=== PATIENT | female | born 1985 | race American Indian/Alaskan Native ===

== ENCOUNTER 2021-07-20 15:26 | Emergency (ER) | payer MEDICAID ==
[2021-07-20 17:21] VITALS: BP 157/103
--- NOTE | 2021-07-20 18:12 | Emergency Department Report ---
ED General Adult HPI - General Chief complaint: Rectal Pain Stated complaint: STD/PAIN X 3 DAYS Time Seen by Provider: 07/20/21 17:29 Source: patient Mode of arrival: Ambulatory Limitations: No Limitations - History of Present Illness Severity scale (0 -10): 7 - Related Data Previous Rx's Medication Instructions Recorded Last Taken Type Hydrocortisone [Anucort-HC SUPPOS] 25 mg RC BID #10 supp.rect 07/20/21 Unknown Rx Hydrocortisone [Anusol-Hc 2.5% TOP 25 mg RC TID PRN #30 cream..g. 07/20/21 Unknown Rx CREAM] Lidocaine [Lidocaine Cream] 15 gm TP Q4HR PRN #15 cream..g. 07/20/21 Unknown Rx Allergies Allergy/AdvReac Type Severity Reaction Status Date / Time metronidazole [From Flagyl] Allergy Swelling Verified 07/20/21 17:21 ED Review of Systems ROS: Stated complaint: STD/PAIN X 3 DAYS Other details as noted in HPI Comment: All other systems reviewed and negative ED Past Medical Hx - Medications Home Medications: Home Medications Medication Instructions Recorded Confirmed Last Taken Type Hydrocortisone [Anucort-HC SUPPOS] 25 mg RC BID #10 supp.rect 07/20/21 Unknown Rx Hydrocortisone [Anusol-Hc 2.5% TOP 25 mg RC TID PRN #30 cream..g. 07/20/21 Unknown Rx CREAM] Lidocaine [Lidocaine Cream] 15 gm TP Q4HR PRN #15 cream..g. 07/20/21 Unknown Rx ED Physical Exam - General Limitations: No Limitations General appearance: alert, in no apparent distress - Head Head exam: Present: atraumatic, normocephalic - Eye Eye exam: Present: normal appearance, PERRL Pupils: Present: normal accommodation - ENT ENT exam: Present: normal exam, mucous membranes moist, TM's normal bilaterally - Neck Neck exam: Present: normal inspection, full ROM - Respiratory Respiratory exam: Present: normal lung sounds bilaterally. Absent: respiratory distress, wheezes, rales, rhonchi, accessory muscle use, decreased breath sounds - Cardiovascular Cardiovascular Exam: Present: regular rate, normal rhythm. Absent: systolic murmur, diastolic murmur, rubs, gallop - GI/Abdominal GI/Abdominal exam: Present: soft, normal bowel sounds - Rectal Rectal exam: Present: hemorrhoids, other (No broadcast systems engineer present) - Extremities Exam Extremities exam: Present: normal inspection - Back Exam Back exam: Present: normal inspection. Absent: CVA tenderness (R), CVA tenderness (L) - Neurological Exam Neurological exam: Present: alert, oriented X3, CN II-XII intact - Psychiatric Psychiatric exam: Present: normal affect, normal mood - Skin Skin exam: Present: warm, dry, intact, normal color. Absent: rash ED Course Vital Signs 07/20/21 17:17 Temperature 98.2 F Pulse Rate 100 H Respiratory 16 Rate Blood Pressure 157/103 [Right] O2 Sat by Pulse 100 Oximetry ED Medical Decision Making - Medical Decision Making 35-year-old female evaluate emergency department today for rectal pain was found to have the symptoms were due to hemorrhoids. Advised patient on the appropriate treatment for the hemorrhoids with creams and suppositories and further definitive treatment to be administered by the director of plant operations. She been advised to stay hydrated and eat a high-fiber diet and taking stool stool softeners and also been briefed on return precautions. In regards to her suspicion for possible coming in contact with an STD but having minimal symptoms she been referred to the health department Critical care attestation.: If time is entered above; I have spent that time in minutes in the direct care of this critically ill patient, excluding procedure time. ED Disposition Clinical Impression: Hemorrhoids, Possible exposure to STD Disposition: 01 HOME / SELF CARE / HOMELESS Is pt being admited?: No Does the pt Need Aspirin: No Condition: Stable Instructions: Hemorrhoids, Dysuria, Safe Sex Additional Instructions: You have been evaluated department today for your rectal pain. Evaluation has revealed that your symptoms are due to hemorrhoids. You can apply hemorrhoid cream or suppository which ever is available and do sitz bath to soothe the area. Stay well-hydrated and eat a high-fiber diet and take stool softeners you should not strain on the toilet. Please follow-up with your primary care provider and also schedule problem with the the director of plant operations which we have listed in your paperwork today. Return to emergency department if you experience worsening bleeding, feeling lightheaded, shortness of breath, headache, feeling weak or having fever or any other concerning symptoms Prescriptions: Hydrocortisone [Anucort-HC SUPPOS] 25 mg RC BID #10 supp.rect Hydrocortisone [Anusol-Hc 2.5% TOP CREAM] 25 mg RC TID PRN #30 cream..g. PRN Reason: rectal pain Lidocaine [Lidocaine Cream] 15 gm TP Q4HR PRN #15 cream..g. PRN Reason: rectal pain Referrals: [facility] [Provider Group] - 3-5 Days [facility] [Provider Group] - 3-5 Days PRIMARY CARE,MD [Primary Care Provider] - 3-5 Days [facility] [Outside] - 3-5 Days
== END 2021-07-20 18:32 | disposition home or self-care (01) ==
LOC: ED 15:26
DX: K64.9 Unspecified hemorrhoids (principal); Z20.2 Contact with and (suspected) exposure to infections with a predominantly sexual mode of transmission; Z88.1 Allergy status to other antibiotic agents
CPT/HCPCS: 99282

== ENCOUNTER 2021-10-28 20:01 | Emergency (ER) | payer MEDICAID ==
[2021-10-28] MEDS ORDERED: oxyCODONE /ACETAMINOPHEN 5-325MG TAB PO ONE (22:31)
[2021-10-28] MEDS ORDERED: KETOROLAC 30 MG/1 ML INJ IM ONE (22:31)
[2021-10-28] MEDS ORDERED: predniSONE 20 MG TAB PO ONE (22:31)
[2021-10-28] MEDS ORDERED: ONDANSETRON 4 MG ODT TAB PO ONE (22:31)
[2021-10-28 23:47] LABS: Bacteria,Urine 1+ /HPF (Negative); Bilirubin,Urine NEG (Negative); Blood,Urine MOD (Negative); Color,Urine Yellow (Yellow); Hyaline Casts,Urine 2 /LPF; Mucus,Urine 2+ /HPF; Urobilinogen,Urine < 2.0 mg/dL (<2.0)
[2021-10-28 23:48] LABS: HCG Qualitative,Urine Negative (Negative)
--- NOTE | 2021-10-29 01:02 | XRay Report ---
CHEST 2 VIEWS INDICATION / CLINICAL INFORMATION: cough. COMPARISON: None available. FINDINGS: SUPPORT DEVICES: None. HEART / MEDIASTINUM: No significant abnormality. LUNGS / PLEURA: No significant pulmonary abnormality. No significant pleural effusion. No pneumothora x. ADDITIONAL FINDINGS: No significant additional findings. IMPRESSION: 1. No acute abnormality of the chest. Signer Name: Gabriel García MD Signed: 10/29/2021 12:57 AM Workstation Name: [id number]
--- NOTE | 2021-10-29 02:14 | Emergency Department Report ---
ED General Adult HPI - General Chief complaint: Headache Stated complaint: BODYACHES Source: patient Mode of arrival: Ambulatory Limitations: No Limitations - History of Present Illness Initial comments: Patient is a 36-year-old female with a history of chronic low back pain due to lumbar disc disease and herniation who presented to the ED with complaint of acute onset persistent nasal and sinus congestion, persistent dry cough for the last 2 months. Patient also complains of diffuse body aches and pains, worsening low back pain with urinary frequency and urgency for the last 1 week. Patient denies dizziness, fall, traumatic injury, heavy lifting, chest pain or shortness of breath, nausea and vomiting or abdominal pain, dysuria, vaginal bleeding, vaginal discharge, heavy lifting, neck pain, headache, diarrhea or numbness and tingling or weakness of lower extremities bilaterally. MD Complaint: Chronic low back pain; persistent dry cough; diffuse body aches and pains; -: Sudden, week(s) (2) Location: head, chest, back Radiation: non-radiation Severity scale (0 -10): 8 Quality: aching, sharp Consistency: constant Improves with: none Associated Symptoms: denies other symptoms, cough, headaches, malaise. denies: confusion, chest pain, diaphoresis, fever/chills, loss of appetite, nausea/vomiting, rash, seizure, shortness of breath, syncope, weakness Treatments Prior to Arrival: NSAID - Related Data Previous Rx's Medication Instructions Recorded Last Taken Type Hydrocortisone [Anucort-HC SUPPOS] 25 mg RC BID #10 supp.rect 07/20/21 Unknown Rx Hydrocortisone [Anusol-Hc 2.5% TOP 25 mg RC TID PRN #30 cream..g. 07/20/21 Unknown Rx CREAM] Lidocaine [Lidocaine Cream] 15 gm TP Q4HR PRN #15 cream..g. 07/20/21 Unknown Rx Baclofen 20 mg PO Q12H PRN #20 tablet 10/29/21 Unknown Rx Benzonatate [Tessalon Perles] 100 mg PO Q8HR #30 capsule 10/29/21 Unknown Rx Butalb/Acetamin/Caff 50-325-40 1 - 2 tab PO Q6HR PRN #15 tab 10/29/21 Unknown Rx [Fioricet 50-325-40] Ibuprofen [Motrin] 800 mg PO Q8HR PRN #30 tablet 10/29/21 Unknown Rx levoFLOXacin [Levaquin TAB] 500 mg PO QDAY #10 tablet 10/29/21 Unknown Rx predniSONE [Deltasone] 40 mg PO QDAY #10 tab 10/29/21 Unknown Rx Allergies Allergy/AdvReac Type Severity Reaction Status Date / Time carbinoxamine [From Rondec] Allergy Unknown Verified 10/28/21 20:07 cephalexin [From Keflex] Allergy Unknown Verified 10/28/21 20:07 metronidazole [From Flagyl] Allergy Swelling Verified 07/20/21 17:21 pseudoephedrine [From Rondec] Allergy Unknown Verified 10/28/21 20:07 Sulfa (Sulfonamide Allergy Unknown Verified 10/28/21 20:07 Antibiotics) ED Review of Systems ROS: Stated complaint: BODYACHES Other details as noted in HPI Constitutional: chills, malaise. denies: fever Eyes: denies: eye pain, eye discharge, vision change ENT: congestion, other. denies: ear pain, throat pain Respiratory: cough. denies: shortness of breath, SOB with exertion, SOB at rest, wheezing Cardiovascular: denies: chest pain, palpitations Endocrine: no symptoms reported. denies: flushing, intolerance to cold, increased hunger, increased thirst Gastrointestinal: denies: abdominal pain, nausea, vomiting, diarrhea Genitourinary: denies: urgency, dysuria, discharge Musculoskeletal: back pain (Low back pain), arthralgia, myalgia. denies: joint swelling Skin: denies: rash, lesions Neurological: headache. 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 C SECTION 2019. RIGHT ANKLE SURGERY 2017 - Medications Home Medications: Home Medications Medication Instructions Recorded Confirmed Last Taken Type Hydrocortisone [Anucort-HC SUPPOS] 25 mg RC BID #10 supp.rect 07/20/21 Unknown Rx Hydrocortisone [Anusol-Hc 2.5% TOP 25 mg RC TID PRN #30 cream..g. 07/20/21 Unknown Rx CREAM] Lidocaine [Lidocaine Cream] 15 gm TP Q4HR PRN #15 cream..g. 07/20/21 Unknown Rx Baclofen 20 mg PO Q12H PRN #20 tablet 10/29/21 Unknown Rx Benzonatate [Tessalon Perles] 100 mg PO Q8HR #30 capsule 10/29/21 Unknown Rx Butalb/Acetamin/Caff 50-325-40 1 - 2 tab PO Q6HR PRN #15 tab 10/29/21 Unknown Rx [Fioricet 50-325-40] Ibuprofen [Motrin] 800 mg PO Q8HR PRN #30 tablet 10/29/21 Unknown Rx levoFLOXacin [Levaquin TAB] 500 mg PO QDAY #10 tablet 10/29/21 Unknown Rx predniSONE [Deltasone] 40 mg PO QDAY #10 tab 10/29/21 Unknown Rx ED Physical Exam - General Limitations: No Limitations General appearance: alert, in no apparent distress - Head Head exam: Present: atraumatic, normocephalic, normal inspection - Eye Eye exam: Present: normal appearance, PERRL, EOMI Pupils: Present: normal accommodation - ENT ENT exam: Present: normal orophraynx, mucous membranes moist, TM's normal bilaterally, normal external ear exam, other (Grossly congested nasal passages; palpable frontal sinus tenderness) - Neck Neck exam: Present: normal inspection, full ROM. Absent: tenderness - Respiratory Respiratory exam: Present: normal lung sounds bilaterally. Absent: respiratory distress, rhonchi, chest wall tenderness, accessory muscle use, decreased breath sounds, prolonged expiratory - Cardiovascular Cardiovascular Exam: Present: regular rate, normal rhythm, normal heart sounds. Absent: systolic murmur, diastolic murmur, rubs, gallop - GI/Abdominal GI/Abdominal exam: Present: soft, normal bowel sounds. Absent: tenderness, guarding, rebound, hyperactive bowel sounds, organomegaly, mass - Extremities Exam Extremities exam: Present: normal inspection, full ROM, normal capillary refill - Back Exam Back exam: Present: normal inspection, full ROM, tenderness (Palpable lumbosacral paraspinal musculoskeletal tenderness), muscle spasm, paraspinal tenderness. Absent: CVA tenderness (L), vertebral tenderness - Neurological Exam Neurological exam: Present: alert, oriented X3, CN II-XII intact, normal gait, reflexes normal - Psychiatric Psychiatric exam: Present: normal affect, normal mood - Skin Skin exam: Present: warm, dry, intact, normal color. Absent: rash ED Course Vital Signs 10/28/21 10/28/21 10/28/21 20:02 22:53 22:54 Temperature 98.2 F Pulse Rate 97 H Respiratory 18 18 181 H Rate Blood Pressure 122/89 [Right] O2 Sat by Pulse 98 Oximetry 10/29/21 10/29/21 02:14 02:34 Temperature Pulse Rate 78 89 Respiratory 16 16 Rate Blood Pressure 138/82 [Right] O2 Sat by Pulse 100 92 Oximetry ED Medical Decision Making - Radiology Data Radiology results: report reviewed, image reviewed [facility] [address] [place] [address] XRay Report Signed Patient: SHELLI ESCOBAR MR#: [id number] : 1985 Acct:[id number] Age/Sex: 36 / F ADM Date: 10/28/21 Loc: ED Attending Dr: Ordering Physician: EDWAR MUHAMMAD Date of Service: 10/28/21 Procedure(s): XR chest routine 2V Accession Number(s): [id number] cc: EDWAR MUHAMMAD Fluoro Time In Minutes: CHEST 2 VIEWS INDICATION / CLINICAL INFORMATION: cough. COMPARISON: None available. FINDINGS: SUPPORT DEVICES: None. HEART / MEDIASTINUM: No significant abnormality. LUNGS / PLEURA: No significant pulmonary abnormality. No significant pleural effusion. No pneumothorax. ADDITIONAL FINDINGS: No significant additional findings. IMPRESSION: 1. No acute abnormality of the chest. Signer Name: Gabriel García MD Signed: 10/29/2021 12:57 AM Workstation Name: [id number] Transcribed By: MN Dictated By: Gabriel García MD Electronically Authenticated By: Gabriel García MD Signed Date/Time: 10/29/2156 DD/ TD/TT: - Medical Decision Making This is a 36-year-old female with a history of chronic low back pain due to lumbar disc disease and herniation who presented to the ED with complaint of acute onset persistent nasal and sinus congestion, persistent dry cough for the last 2 months. Patient also complains of diffuse body aches and pains, worsening low back pain with urinary frequency and urgency for the last 1 week. In the ED, patient is alert and oriented x3 and is not in distress. Patient was treated for pain in the ED. Chest x-ray showed no acute cardiopulmonary abnormalities or pneumonitis. Urinalysis showed urinary tract infection. Rapid influenza test was negative. On reevaluation, patient felt better, pain is well controlled medication. Patient was discharged home on medications and advised to follow-up with her primary care physician in 7 to 10 days for reevaluation or return to the ED immediately if symptoms get worse. - Differential Diagnosis Bronchitis; pneumonia; UTI; chronic back pain; muscle spasm Critical care attestation.: If time is entered above; I have spent that time in minutes in the direct care of this critically ill patient, excluding procedure time. ED Disposition Clinical Impression: Spasm of muscle of lower back, Sinus headache, Acute urinary tract infection Chronic low back pain with sciatica Qualifiers: Back pain laterality: bilateral Sciatica laterality: bilateral sciatica Qualified Code(s): M54.42 - Lumbago with sciatica, left side Acute frontal sinusitis, unspecified Qualifiers: Recurrence: non-recurrent Qualified Code(s): J01.10 - Acute frontal sinusitis, unspecified Acute bronchitis Qualifiers: Bronchitis organism: unspecified organism Qualified Code(s): J20.9 - Acute bronchitis, unspecified Disposition: 01 HOME / SELF CARE / HOMELESS Is pt being admited?: No Does the pt Need Aspirin: No Condition: Stable Instructions: Muscle Cramps and Spasms, [id number], Sinusitis, Adult, [id number], Urinary Tract Infection, Adult, [id number], Acute Bronchitis, Adult, [id number], Upper Respiratory Infection, Adult, [id number], Chronic Back Pain, [id number], Acute Bronchitis (ED) Additional Instructions: Chest x-ray showed no acute cardiopulmonary abnormalities or pneumonitis. Urinalysis showed urinary tract infection. Therefore take medication with food, drink plenty of fluids and follow-up with your primary care physician in 7 to 10 days for reevaluation. Return to the ED immediately if symptoms get worse. Prescriptions: Baclofen 20 mg PO Q12H PRN #20 tablet PRN Reason: Muscle Spasm predniSONE [Deltasone] 40 mg PO QDAY #10 tab Butalb/Acetamin/Caff 50-325-40 [Fioricet 50-325-40] 1 - 2 tab PO Q6HR PRN #15 tab PRN Reason: Headache levoFLOXacin [Levaquin TAB] 500 mg PO QDAY #10 tablet Ibuprofen [Motrin] 800 mg PO Q8HR PRN #30 tablet PRN Reason: Pain , Severe (7-10) Benzonatate [Tessalon Perles] 100 mg PO Q8HR #30 capsule Referrals: [facility] [Provider Group] - 7-10 days Time of Disposition: 02:11 Print Language: NEPALI
[2021-10-29 02:35] VITALS: BP 138/82
== END 2021-10-29 02:35 | disposition home or self-care (01) ==
LOC: ED 20:01
DX: M62.830 Muscle spasm of back (principal); M54.42 Lumbago with sciatica, left side; G89.29 Other chronic pain; N39.0 Urinary tract infection, site not specified; J01.10 Acute frontal sinusitis, unspecified; J20.9 Acute bronchitis, unspecified; Z98.890 Other specified postprocedural states; Z88.2 Allergy status to sulfonamides; Z88.8 Allergy status to other drugs, medicaments and biological substances; Z79.899 Other long term (current) drug therapy
CPT/HCPCS: 71046; 81001; 81025; 87400; 96372; 99284; J1885; J7512; J3490; Q0162

== ENCOUNTER 2021-11-26 08:32 | Emergency (ER) | payer OTHER, MEDICAID ==
[2021-11-26 08:49] VITALS: BP 149/83
[2021-11-26] MEDS ORDERED: KETOROLAC 30 MG/1 ML INJ IM ONE (09:30)
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
== END 2021-11-26 12:19 | disposition home or self-care (01) ==
LOC: ED 08:32
DX: M54.50 Low back pain, unspecified (principal); G89.29 Other chronic pain; V49.49XA Driver injured in collision with other motor vehicles in traffic accident, initial encounter; Y93.89 Activity, other specified; Y92.89 Other specified places as the place of occurrence of the external cause; Y99.8 Other external cause status
CPT/HCPCS: 72070; 72100; 96372; 99283; J1885

== ENCOUNTER 2022-05-22 18:41 | Emergency (ER) | payer MEDICAID ==
[2022-05-23 05:33] LABS: Basophils # (Auto) 0.1 K/mm3 (0.0-0.1); Basophils % (Auto) 1.3 % (0.0-1.8); Eosinophils # (Auto) 0.1 K/mm3 (0.0-0.4); Lymphocytes # (Auto) 3.9 K/mm3 (1.2-5.4); Lymphocytes % (Auto) 40.8 % (13.4-35.0); Mean Corpuscular HGB Conc 33 % (30-34); Mean Corpuscular Volume 98 fl (79-97); Monocytes # (Auto) 0.8 K/mm3 (0.0-0.8); Monocytes % (Auto) 8.2 % (0.0-7.3); Platelet Count 207 K/mm3 (140-440); Red Blood Count 4.61 M/mm3 (3.65-5.03); Red Cell Distribution Width 13.3 % (13.2-15.2)
[2022-05-23 05:43] LABS: Alanine Aminotransferase 17 units/L (7-56); Albumin 4.2 g/dL (3.9-5); Blood Urea Nitrogen 11 mg/dL (7-17); Calcium 9.2 mg/dL (8.4-10.2); Hemolysis Index 1
[2022-05-23 05:45] LABS: BUN/Creatinine Ratio 22
--- NOTE | 2022-05-23 06:16 | XRay Report ---
CHEST 2 VIEWS INDICATION / CLINICAL INFORMATION: Chest Pain. COMPARISON: Chest x-ray 10/29/2021 FINDINGS: SUPPORT DEVICES: None. HEART / MEDIASTINUM: Heart size and mediastinal contour appear within normal limits. LUNGS / PLEURA: No significant pulmonary or pleural abnormality. No pneumothorax. BONES: No significant osseous abnormality. ADDITIONAL FINDINGS: No significant additional findings. IMPRESSION: 1. No active cardiopulmonary disease. Signer Name: Natan Navarro II, MD Signed: 05/23/2022 6:12 AM Workstation Name: [id number]
[2022-05-23 06:29] VITALS: BP 153/66
[2022-05-23] MEDS ORDERED: KETOROLAC 60 MG/2 ML INJ IM STA (06:41)
--- NOTE | 2022-05-23 07:04 | Emergency Department Report ---
ED General Adult HPI - General Chief complaint: Chest Pain Stated complaint: GENERAL SICKNESS Time Seen by Provider: 05/23/22 06:25 Source: patient Mode of arrival: Ambulatory Limitations: No Limitations - History of Present Illness Initial comments: 36-year-old female smoker, has been contact with positive COVID persons presents emerged [place] complaining of cough congestion and coryza for the last 2 to 3 days. Pain radiates up and down the right sternal border of the chest and worsens with palpation and range of motion. Reports no fever, chills, sweats -: Gradual Radiation: non-radiation Severity scale (0 -10): 10 Consistency: constant Improves with: none Worsens with: none, medication Associated Symptoms: denies other symptoms - Related Data Previous Rx's Medication Instructions Recorded Last Taken Type Hydrocortisone [Anucort-HC SUPPOS] 25 mg RC BID #10 supp.rect 07/20/21 Unknown Rx Hydrocortisone [Anusol-Hc 2.5% TOP 25 mg RC TID PRN #30 cream..g. 07/20/21 Unknown Rx CREAM] Lidocaine [Lidocaine Cream] 15 gm TP Q4HR PRN #15 cream..g. 07/20/21 Unknown Rx Baclofen 20 mg PO Q12H PRN #20 tablet 10/29/21 Unknown Rx Benzonatate [Tessalon Perles] 100 mg PO Q8HR #30 capsule 10/29/21 Unknown Rx Butalb/Acetamin/Caff 50-325-40 1 - 2 tab PO Q6HR PRN #15 tab 10/29/21 Unknown Rx [Fioricet 50-325-40] Ibuprofen [Motrin] 800 mg PO Q8HR PRN #30 tablet 10/29/21 Unknown Rx levoFLOXacin [Levaquin TAB] 500 mg PO QDAY #10 tablet 10/29/21 Unknown Rx predniSONE [Deltasone] 40 mg PO QDAY #10 tab 10/29/21 Unknown Rx Ketorolac [Toradol] 10 mg PO Q6H PRN #20 11/26/21 Unknown Rx Ketorolac [Toradol] 10 mg PO Q6H PRN #14 05/23/22 Unknown Rx Allergies Allergy/AdvReac Type Severity Reaction Status Date / Time carbinoxamine [From Rondec] Allergy Unknown Verified 10/28/21 20:07 cephalexin [From Keflex] Allergy Unknown Verified 10/28/21 20:07 metronidazole [From Flagyl] Allergy Swelling Verified 07/20/21 17:21 pseudoephedrine [From Rondec] Allergy Unknown Verified 10/28/21 20:07 Sulfa (Sulfonamide Allergy Unknown Verified 10/28/21 20:07 Antibiotics) ED Review of Systems ROS: Stated complaint: GENERAL SICKNESS Other details as noted in HPI Comment: All other systems reviewed and negative ED Past Medical Hx - Past Medical History Hx Kidney Stones: Yes (2 KIDNEY STONES IN LT LOBE) Additional medical history: HERNIATED DISK CYST ON SPINE - Surgical History Hx Cholecystectomy: Yes (2010) Additional Surgical History: C SECTION 2000. C SECTION 2019. RIGHT ANKLE SURGERY 2016 - Social History Smoking Status: Unknown if ever smoked - Medications Home Medications: Home Medications Medication Instructions Recorded Confirmed Last Taken Type Hydrocortisone [Anucort-HC SUPPOS] 25 mg RC BID #10 supp.rect 07/20/21 Unknown Rx Hydrocortisone [Anusol-Hc 2.5% TOP 25 mg RC TID PRN #30 cream..g. 07/20/21 Unknown Rx CREAM] Lidocaine [Lidocaine Cream] 15 gm TP Q4HR PRN #15 cream..g. 07/20/21 Unknown Rx Baclofen 20 mg PO Q12H PRN #20 tablet 10/29/21 Unknown Rx Benzonatate [Tessalon Perles] 100 mg PO Q8HR #30 capsule 10/29/21 Unknown Rx Butalb/Acetamin/Caff 50-325-40 1 - 2 tab PO Q6HR PRN #15 tab 10/29/21 Unknown Rx [Fioricet 50-325-40] Ibuprofen [Motrin] 800 mg PO Q8HR PRN #30 tablet 10/29/21 Unknown Rx levoFLOXacin [Levaquin TAB] 500 mg PO QDAY #10 tablet 10/29/21 Unknown Rx predniSONE [Deltasone] 40 mg PO QDAY #10 tab 10/29/21 Unknown Rx Ketorolac [Toradol] 10 mg PO Q6H PRN #20 11/26/21 Unknown Rx Ketorolac [Toradol] 10 mg PO Q6H PRN #14 05/23/22 Unknown Rx ED Physical Exam - General Limitations: No Limitations General appearance: alert, in no apparent distress - Head Head exam: Present: atraumatic, normocephalic - Eye Eye exam: Present: normal appearance, PERRL, EOMI, scleral icterus, conjunctival injection, periorbital swelling Pupils: Present: normal accommodation - ENT ENT exam: Present: normal exam, mucous membranes moist, TM's normal bilaterally - Neck Neck exam: Present: normal inspection, full ROM - Respiratory Respiratory exam: Present: wheezes (Mild). Absent: respiratory distress - Cardiovascular Cardiovascular Exam: Present: regular rate, normal rhythm. Absent: systolic murmur, diastolic murmur, rubs, gallop - GI/Abdominal GI/Abdominal exam: Present: soft, normal bowel sounds - Extremities Exam Extremities exam: Present: normal inspection - Back Exam Back exam: Present: normal inspection - Neurological Exam Neurological exam: Present: alert, oriented X3 - Psychiatric Psychiatric exam: Present: normal affect, normal mood - Skin Skin exam: Present: warm, dry, intact, normal color. Absent: rash ED Course Vital Signs 05/22/22 05/23/22 05/23/22 19:51 04:09 04:12 Temperature 98.5 F Pulse Rate 80 88 Respiratory 16 16 Rate Blood Pressure 131/80 Blood Pressure 131/80 147/75 [Right] O2 Sat by Pulse 99 98 96 Oximetry 05/23/22 06:28 Temperature Pulse Rate 72 Respiratory 18 Rate Blood Pressure Blood Pressure 153/66 [Right] O2 Sat by Pulse 96 Oximetry ED Medical Decision Making - Lab Data Result diagrams: 05/23/22 04:40 05/23/22 04:40 Lab Results 05/23/22 05/23/22 05/23/22 Range/Units 04:40 04:40 04:40 WBC 9.7 (4.5-11.0) K/mm3 RBC 4.61 (3.65-5.03) M/mm3 Hgb 15.0 H (10.1-14.3) gm/dl Hct 45.0 H (30.3-42.9) % MCV 98 H (79-97) fl MCH 33 H (28-32) pg MCHC 33 (30-34) % RDW 13.3 (13.2-15.2) % Plt Count 207 (140-440) K/mm3 Lymph % (Auto) 40.8 H (13.4-35.0) % Grand % (Auto) 8.2 H (0.0-7.3) % Eos % (Auto) 1.0 (0.0-4.3) % Baso % (Auto) 1.3 (0.0-1.8) % Lymph # (Auto) 3.9 (1.2-5.4) K/mm3 Grand # (Auto) 0.8 (0.0-0.8) K/mm3 Eos # (Auto) 0.1 (0.0-0.4) K/mm3 Baso # (Auto) 0.1 (0.0-0.1) K/mm3 Seg Neutrophils % 48.7 (40.0-70.0) % Seg Neutrophils # 4.7 (1.8-7.7) K/mm3 Sodium 140 (137-145) mmol/L Potassium 3.3 L (3.6-5.0) mmol/L Chloride 102.9 (98-107) mmol/L Carbon Dioxide 27 (22-30) mmol/L Anion Gap 13 mmol/L BUN 11 (7-17) mg/dL Creatinine 0.5 L (0.6-1.2) mg/dL Estimated GFR > 60 ml/min BUN/Creatinine Ratio 22 % Glucose 98 (65-100) mg/dL Calcium 9.2 (8.4-10.2) mg/dL Total Bilirubin 0.20 (0.1-1.2) mg/dL AST 14 (5-40) units/L ALT 17 (7-56) units/L Alkaline Phosphatase 109 (35-129) units/L Total Protein 7.1 (6.3-8.2) g/dL Albumin 4.2 (3.9-5) g/dL Albumin/Globulin Ratio 1.4 % HCG, Qual Negative (Negative) - EKG Data EKG shows normal: sinus rhythm Rate: normal - Radiology Data Radiology results: report reviewed Critical care attestation.: If time is entered above; I have spent that time in minutes in the direct care of this critically ill patient, excluding procedure time. ED Disposition Clinical Impression: Chest pain Disposition: 01 HOME / SELF CARE / HOMELESS Is pt being admited?: No Does the pt Need Aspirin: No Condition: Stable Instructions: Nonspecific Chest Pain, Adult, Costochondritis Prescriptions: Ketorolac [Toradol] 10 mg PO Q6H PRN #14 PRN Reason: Pain Referrals: JOANA ZAMUDIO MD [Primary Care Provider] - 3-5 Days
--- NOTE | 2022-05-24 18:51 | Electrocardiograph Report ---
[facility] Test Date: 2022-05-22 Test Time: 20:04:26 Pat Name: SHELLI ESCOBAR Department: Room: Gender: F Human Intelligence: : 1985 Requested By: MJ CARVAJAL Order Number: [id number] Reading MD: Naren Gee Measurements Intervals [place] Rate: 69 P: 65 NV: 132 QRS: 79 QRSD: 93 T: 46 QT: 397 QTc: 425 Interpretive Statements Sinus rhythm Probable left atrial enlargement No previous ECG available for comparison Electronically Signed On 05-24-2022 18:50:59 EDT by Naren Gee
== END 2022-05-23 07:05 | disposition home or self-care (01) ==
LOC: ED 18:41
DX: R07.9 Chest pain, unspecified (principal); N20.0 Calculus of kidney; Z90.49 Acquired absence of other specified parts of digestive tract; Z88.1 Allergy status to other antibiotic agents; Z91.09 Other allergy status, other than to drugs and biological substances; Z79.899 Other long term (current) drug therapy
CPT/HCPCS: 36415; 71046; 80053; 84703; 85025; 93005; 96372; 99284; J1885